=== PATIENT | female | born 2000 ===

== ENCOUNTER 2025-02-02 13:35 | Emergency (ER) | payer OTHER, SELFPAY ==
--- OUTSIDE RECORDS SUMMARY | 2024-06-30 05:30 | XMS_ITS ---
Author Organization [facility] Address [address] [place] [address] Care Team Providers Care Cash Management Coordinator Name Role Phone Franko Tom Primary Care Provider [phone] Janeen Garcia Unavailable Unavailable Kari Vizcaino Unavailable [phone] Encounters Encounter Location Date Provider Diagnosis [facility] [address] [place] [id number] Kari Vizcaino Plan Of Treatment No Information Progress Notes * José Miguel APPIAHOB: 000 (25 yo F)Acc No.[id number]:06/30/2024 Progress Notes Patient: Edna SWEET Provider: ELKE Hays, CHAN, YAZAN-C :2000 A ge:24 Y S ex:Female Date:06/30/2024 Address:[address] [place] [address], [address], [id number] Pcp:Franko Tom Subjective: * Chief Complaints: * * Medical History: Objective: * Vitals: Assessment: Plan: * Treatment: * Billing Information: * Visit Code: * Procedure Codes: * Electronic signature of Kari Vizcaino APRN on 2025 at 06:24 PM EST Sign off status: Pending * Provider: ELKE Hays, CHAN, AGNP-C Date: 0 06/30/2024 Generated for Printi ng/Faxing/eTransmitting on: 1 04/04/2024 06:24 PM EST
--- OUTSIDE RECORDS SUMMARY | 2024-07-22 04:00 | XMS_ITS ---
Author Organization [facility] Address [address] [place] [address] Care Team Providers Care Carbon Paper Coating Supervisor Name Role Phone Franko Tom Primary Care Provider Janeen Garcia Unavailable Unavailable Encounters Encounter Location Date Provider Diagnosis [facility] [address] [place] [address] 07/22/2024 Franko Tom Plan Of Treatment No Information Progress Notes * José Miguel APPIAHOB: 000 (25 yo F)Acc No.[id number]:07/22/2024 Progress Notes Patient: Edna SWEET Provider: Frank Tom MD :2000 A ge:24 Y S ex:Female Date:07/22/2024 Address:[facility], [address], [id number] Subjective: * Chief Complaints: * * Medical History: Objective: * Vitals: Assessment: Plan: * Treatment: * Billing Information: * Visit Code: * Procedure Codes: * [place], [id number] on 2025 at 06:24 PM EST Sign off status: Pending * Provider: Frank Tom MD Date: 07/22/2024 Generated for Navai ng/Fajoelg/eTransmitting on: 04/04/2024 06:24 PM EST
--- OUTSIDE RECORDS SUMMARY | 2024-08-24 04:00 | XMS_ITS ---
Author Organization [facility] Address [address] [place] [address] Care Team Providers Care Metal Window Frame Maker Name Role Phone Franko Tom Primary Care Provider JoseJaneen Unavailable Unavailable Medications Medication SIG (Take, Route, Frequency, Duration) Notes Start Date End Date Status XULANE PATCH 150-35 MCG/24 HR 0; Duration: 30 *please review for potential update for e-prescription and drug interaction check* 03/12/2017 Active NORTRIPTYLINE HCL 10 MG CAP 60 1 qhs x 1 week, then 2 qhs after that.; Duration: 30 *please review for potential update for e-prescription and drug interaction check* 05/07/2016 Active AMITRIPTYLINE HCL 25 MG TAB 0 1 qhs; Duration: 30 *please review for potential update for e-prescription and drug interaction check* ae: helps sleep, groggy in a.m.. 02/14/2016 Active Vitamin B-2 100 mg 120 Oral Take 2 tabs bid with meals (4 tabs qd).; Duration: 30 03/05/2016 Active Acetaminophen Extra Strength 500 MG 0 Oral 2 tabs prn; Duration: 30 12/30/2016 Active Ibuprofen 200 mg 0 Oral 2 tabs prn, uses 8/week.; Duration: 30 relief 0%-60%. 12/30/2016 Active Fludrocortisone Acetate 0.1 MG 0 Oral 1 tab bid; Duration: 30 02/19/2016 Active Encounters Encounter [facility] Date [facility] [address] [place] [address] 08/24/2024 Franko Tom Plan Of Treatment No Information Progress Notes * Phil APPIAH: 000 (25 yo F)Acc No.[id number]:08/24/2024 Progress Notes Patient: Edna SWEET Provider: Frank Tom MD :2000 A ge:24 Y S ex:Female Date:08/24/2024 Address:[address] [place] [address] Subjective: * Chief Complaints: * * Medical History: * Medications: T aking Acetaminophen Extra Strength 500 MG Tablet 0 Oral 2 tabs prn , Taking Fludrocortisone Acetate 0.1 MG Tablet 0 Oral 1 tab bid , Taking Ibuprofen 200 mg Tablet 0 Oral 2 tabs prn, uses 8/week. , Notes to Pharmacist: relief 0%-60%., Taking Vitamin B-2 100 mg Tablet 120 Oral Take 2 tabs bid with meals (4 tabs qd). , Taking AMITRIPTYLINE HCL 25 MG TAB 0 1 qhs , Notes to Pharmacist: *please review for potential update for e-prescription and drug interaction check* ae: helps sleep, groggy in a.m.., Taking NORTRIPTYLINE HCL 10 MG CAP 60 1 qhs x 1 week, then 2 qhs after that. , Notes to Pharmacist: *please review for potential update for e-prescription and drug interaction check*, Taking XULANE PATCH 150-35 MCG/24 HR 0 , Notes to Pharmacist: *please review for potential update for e-prescription and drug interaction check* Objective: * Vitals: Assessment: Plan: * Treatment: * Billing Information: * Visit Code: * Procedure Codes: * [place], [id number] on 2025 at 06:25 PM EST Sign off status: Pending * Provider: Frank Tom MD Date: 0 08/24/2024 Generated for Jana thomason/Hans/Polly on: 04/04/2024 06:25 PM EST
--- OUTSIDE RECORDS SUMMARY | 2025-01-26 14:00 | XMS_ITS | Encounter Summary ---
Author Organization [facility] Address [address] [place] [address] Care Team Providers Care Lamp Shades Supervisor Name Role Phone Lissy Reece MD Primary Care P rovider Reason for Referral * Physical Therapy (Routine) - Pending Review Specialty Diagnoses / Procedures Referred By Deniz erazo Referred To Contact Physical Therapy Diagnoses Chronic midline back pain, unspecified back location Gayathri Medellin MD [address] [place] [address] Phone: tel: fax: Barrera Brower, PT [address] [facility] ([place] ) [place] [address] Referral ID Status Reason Start Date Expiration Date Visits Requested Visits Authorized [id number] Pending Review Specialty Services Required 01/26/2025 02/25/2026 6 6 * Consultation (Routine) - Pending Review Specialty Diagnoses / Procedures Referred By Deniz erazo Referred To Contact Orthopaedic Surgery Diagnoses Chronic midline back pain, unspecified back location Gayathri Medellin MD [address] [place] [address] Phone: tel: fax: [facility] [address] [place] [address] Phone: tel: fax: Referral ID Status Reason Start Date Expiration Date V isits Requested Visits Authorized [id number] Pending Review 01/26/2025 02/25/2026 6 6 * Consultation (Routine) - Pending Review Specialty Diagnoses / Procedures Referred By Deniz erazo Referred To Contact Dermatology Diagnoses Acne, unspecified acne type Gayathri Medellin MD [address] [place] [address] Phone: tel: fax: [facility] 4th Floor [address] [facility], [place] [address] Phone: tel: fax: Referral ID Status Reason Start Date Expiration Date Visits Requested Visits Authorized [id number] Pending Review Specialty Services Required 01/26/2025 02/25/2026 6 6 * Consultation (Routine) - Pending Review Specialty Diagnoses / Procedures Referred By Deniz erazo Referred To Contact Family Medicine Diagnoses Anxiety Gayathri Medellin MD [address] [place] [address] Phone: tel: fax: [facility] [address] [place] [address] Phone: tel: fax: Referral ID Status Reason Start Date Expiration Date Visits Requested Visits Authorized [id number] Pending Review Specialty Services Required 01/26/2025 02/25/2026 6 6 Reason for Visit * Reason Comments New Patient Encounter Details Date Type Department Care Team (Late st Contact Info) Description 01/26/2025 2:00 PM EST Office Visit [facility] [address] [place] [address] Lissy Reece MD [address] [place] [address] Encounter to establish care (Primary Dx); Healthcare maintenance; Anxiety; Chronic midline back pain, unspecified back location; Acne, unspecified acne type; Globus sensation Social History Tobacco Use Types Packs/Day Years Used Date Smoking Tobacco: Never Smokeless Tobacco: Never Comments:: Alcohol Use Standard Drinks/Week Comments Never 0 (1 standard drink = 0.6 oz pur e alcohol) Hunger Vital Sign Answer Date Recorded Within the past 12 months, y ou worried that your food would run out before you got the money to buy more. Sometimes true Within the past 12 months, t he food you bought just didn't last and you didn't have money to get more. Often true 09/2024 [facility] Utilities Answer Date Recorded In the past 12 months has th e electric, gas, oil, or water company threatened to shut off services in your home? No 01/28/2025 Transportation Answer Date Recorded In the past 12 months, has l ack of reliable transportation kept you from medical appointments, meetings, work or from getting things needed for daily living? Yes 01/28/2025 Housing Answer Date Recorded Housing Risk Low 2 01/28/2025 Housing Risk Medium Not on file 01/28/2025 Housing Risk High Not on file 01/28/2025 What is your living situation today? 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 Case discussed with the resident/fellow and I agree with the findings and plan as documented in the resident's/fellow's note. * Gayathri Medellin MD - 01/26/2025 3:20 PM EST Seen with resident * Lissy Lacy MD - 01/26/2025 1:50 PM EST [facility] Patient: Edna Galan : 2000 Clinic H&P Note Subjective PATIENT ID: Edna Galan is a pleasant 24 y.o. female with a PMH of anxiety, depression, PTSD, dysmenorrhea here for new patient establishment with primary care provider. HPI: Edna Galan is a pleasant 24 y.o. female with a PMH of anxiety, depression, PTSD, dysmenorrhea here for new patient establishment with primary care provider. Patient would also like to discuss ongoing anxiety and depression. She had seen a psychiatrist in the past but is currently not in follow up. She was on lexapro for a short period a few months ago. She reports feeling better on it but discontinued as she did not want to be dependent on the medications. She reports being on amytriptilline as a teenager. She reports experiencing emotional lability, nightmares, anxiety, hearing and seeing things that are not present but being aware that they are not real. She reports being diagnosed with bipolar disorder in the past but that she does agree with the diagnosis. For patients not previously with complete/up-to-date information in the [facility] EMR, the above additional history was elicited today, with prior documentation in the intra-system record populated as below: PAST MEDICAL HISTORY History reviewed. No pertinent past medical history. Problem List Diagnosis Date Noted Breast lump 01/28/2025 H/O food anaphylaxis 07/01/2024 Polyuria 07/01/2024 Nonintractable headache 07/01/2024 Mild intermittent asthma, unspecified whether complicated (HCC) 01/07/2024 Pelvic pain 11/27/2023 Need for bigdevyvof-yxjrjut-izziqtvhn (Tdap) vaccine 11/20/2023 Depression 10/17/2023 Unprotected sex 12/27/2022 Vegan diet 12/27/2022 Palpitations 05/15/2022 PTSD (post-traumatic stress disorder) 05/15/2022 Orthostatic hypotension 05/15/2022 Dysmenorrhea 08/03/2021 Asthma (HCC) 08/19/2020 Adolescent idiopathic scoliosis of thoracolumbar region 05/20/2017 Syncope 02/12/2016 Disorder of sebaceous glands 01/16/2011 Eczema 04/28/2008 Contact dermatitis 12/21/2007 Allergies Allergen Reactions Amitriptyline Abdominal Pain Benadryl [Diphenhydramine Hcl] Slow Heart Rate Patient reports heart rate of 20s with benadryl in 2022 in ED, per notes patient reported vagal symptoms, no note made by MD of bradycardia at the time. Latex Rash Contact dermatitis like rash Soy Other (see comments) Throat itching and tightness Current Outpatient Medications: EPINEPHrine (EPIPEN) 0.3 mg/0.3 mL injection syringe, Inject 1 Syringe (0.3 mg total) into the outer thigh muscle as directed as needed for anaphylaxis., Disp: 1 each, Rfl: 2 erythromycin (ILOTYCIN) 0.5% ophthalmic ointment, Apply to both eyes nightly. Place a 1/2 inch ribbon of ointment into the lower eyelid., Disp: 3.5 g, Rfl: 0 inhalational spacing device, Use as directed, Disp: 1 each, Rfl: 2 tretinoin (RETIN-A) 0.025 % cream, Apply topically to the affected area nightly., Disp: 20 g, Rfl: 1 Ventolin HFA 90 mcg/actuation inhaler, INHALE 1-2 PUFFS BY MOUTH EVERY 6 HOURS NEEDED FOR WHEEZING/SHORTNESS OF BREATH.USE WITH SPACER, Disp: 18 g, Rfl: 1 Vitamin D3 25 mcg (1,000 unit) capsule, Take 1 capsule (1,000 Units total) by mouth once a day., Disp: 30 capsule, Rfl: 11 SOCIAL HISTORY Social History Tobacco Use Smoking status: Never Smokeless tobacco: Never Tobacco comments: : Substance Use Topics Alcohol use: Never reports that she has never smoked. She has never used smokeless tobacco. She reports that she does not drink alcohol and does not use drugs. FAMILY HISTORY Family History Problem Relation Age of Onset Other Mother No pertinent family history Chelo-Danlos syndrome Mother Cervical cancer Mother ADD / ADHD Mother Depression Mother Anxiety disorder Mother Hypertension Father Hypothyroidism Father Coronary artery disease Father Anxiety disorder Father Seizures Father Depression Sister Anxiety disorder Sister Bipolar disorder Sister Polycystic ovary syndrome Sister ADD / ADHD Brother REVIEW OF SYSTEMS Pertinent positive and negative ROS as in HPI. Objective Vitals: 01/26/25 1346 BP: 103/71 BP Location: Right arm Patient Position: Sitting Pulse: 64 Weight: 68 kg (150 lb) Height: 1.651 m (5' 5 ) Physical Exam Constitutional: General: She is not in acute distress. Cardiovascular: Heart sounds: Normal heart sounds. No murmur heard. Pulmonary: Effort: No respiratory distress. Breath sounds: Normal breath sounds. Neurological: Mental Status: She is alert. ASSESSMENT AND PLAN In Summary, Edna Galan was seen today for new patient establishment. Assessment & Plan Encounter to establish care Healthcare maintenance Edna Galan is a pleasant 24 y.o. female with a PMH of anxiety, depression, PTSD, dysmenorrhea here for new patient establishment with primary care provider. She also requested testing for sexually transmitted infections. Orders: CBC Vitamin D 25 hydroxy Basic metabolic panel HIV 1/2 antibodies, rapid Hepatitis C Antibody w/Reflex to HCV RNA, Quantitative PCR Chlamydia/Neisseria gonorrhoeae RNA; Future Anxiety Patient would also like to discuss ongoing anxiety and depression. She had seen a psychiatrist in the past but is currently not in follow up. She was on lexapro for a short period a few months ago. She reports feeling better on it but discontinued as she did not want to be dependent on the medications. She reports being on amytriptilline as a teenager. She reports experiencing emotional lability, nightmares, anxiety, hearing and seeing things that are not present but being aware that they are not real. She reports being diagnosed with bipolar disorder in the past but that she does agree with the diagnosis. Patient sent MDQ questionnaire and ASRS questionnaire to fill in before next visit. Plan to start medications after further evaluation and discussion with patient next visit. Orders: Ambulatory referral to Behavioral Health; Future Chronic midline back pain, unspecified back location Patient reports experiencing chronic back pain and being diagnosed with scoliosis in the past. She was following with physical therapy in the past and reported improvement in symptoms. Orders: Ambulatory referral to Ortho - All; Future Ambulatory referral to Physical Therapy; Future Acne, unspecified acne type Patient reports experiencing acne since the past few years that have caused scarring in the area ofher lower face. Orders: Ambulatory referral to Dermatology; Future - Tretinoin topical cream 0.025%, application with moisturizer in the night. Apply sunscreen in theAM. Globus sensation Orders: Allergen Respiratory Profile Region I w/ Reflexes, IgE Allergen Soybean, IgE Chlamydia/Neisseria gonorrhoeae RNA; Future Return in about 2 weeks (around 02/09/2025) for Recheck, Annual physical. The patient's case was discussed with Dr. Medellin attending physician, who saw and evaluated patient in the exam room. Edna Herminio Angelia : 2000 CSN: [id number] Lissy Lacy MD, PGY-1 Department of Family Medicine [facility] documented in this encounter Plan of Treatment Upcoming Encounters Date Type Department Care Team (Late st Contact Info) Description 02/07/2025 2:30 PM EST Telehealth [facility] [address] [place] [phone] Krystle Escalante, LUZMARIA [address] [place] [address] 03/07/2025 2:00 PM EST Office Visit [facility] [address] [place] [address] Lissy Reece MD [address] [place] [address] 07/14/2025 3:30 PM EDT Office Visit [facility] Dermatology [address] [place] [address] Eduar Alvarez MD [address] [place] [address] Scheduled Referrals Name Type Priority Associated Diagnoses Orde r Schedule Ambulatory referral to Behavioral Health Outpatient Referral Routine Anxiety Expected: 01/26/2025, Expires: 07/26/2026 Ambulatory referral to Dermatology Outpatient Referral Routine Acne, unspecified acne type Expected: 01/26/2025, Expires: 02/25/2026 Ambulatory referral to Ortho - All Outpatient Referral Routine Chronic midline back pain, unspecified back location Expected: 01/26/2025, Expires: 02/25/2026 Ambulatory referral to Physical Therapy Outpatient Referral Routine Chronic midline back pain, unspecified back location Expected: 01/26/2025, Expires: 02/25/2026 documented as of this encounter Procedures * Due to [place] state law, this organization might not be sharing negative HIV tests. Procedure Name Priority Date/Time Associated Diagnosis Comments CHLAMYDIA/NEISSERIA GONORRHEA RNA Routine 01/26/2025 4:30 PM EST Chronic midline back pain, unspecified back location Acne, unspecified acne type Healthcare maintenance Anxiety Globus sensation DOG DANDER COMPONENT -[id number] Routine 01/26/2025 3:40 PM EST Globus sensation CAT DANDER COMPONENT [id number] Routine 01/26/2025 3:40 PM EST Globus sensation ALLERGEN RESPIRATORY PROFILE REGION I W/REFLEXES, IGE Routine 01/26/2025 3:40 PM EST Globus sensation HEPATITIS C ANTIBODY W/REFLEX TO HCV RNA, QUANTITATIVE PCR Routine 01/26/2025 3:40 PM EST Healthcare maintenance ALLERGEN SOYBEAN, IGE Routine 01/26/2025 3:40 PM EST Globus sensation VITAMIN D, 25-HYDROXY, TOTAL, IMMUNOASSAY Routine 01/26/2025 3:40 PM EST Healthcare maintenance HIV-1/2 ANTIGEN/ANTIBODIES 4TH GENERATION W/REFLEX Routine 01/26/2025 3:40 PM EST Healthcare maintenance CBC Routine 01/26/2025 3:40 PM EST Healthcare maintenance BASIC METABOLIC PANEL Routine 01/26/2025 3:40 PM EST Healthcare maintenance documented in this encounter Results * Due to [place] state law, this organization might not be sharing negative HIV tests. * Chlamydia/Neisseria gonorrhoeae RNA (01/26/2025 4:30 PM EST) Chlamydia trachomatis RNA, T[facility] NOT DETECTED NOT DETECTED 01/27/2025 2:16 PM EST [facility] Neisseria Gonorrhoeae RNA, TMA NOT DETECTED NOT DETECTED 01/27/2025 2:16 PM EST [facility] Comment: The analytical performance characteristics of this assay, when used to test SurePath(TM) specimens have been determined by [facility]. The modifications have not been cleared or approved by the FDA. This assay has been validated pursuant to the CLIA regulations and is used for clinical purposes. For additional information, please refer to https://education.Siftit.Redapt/faq/SEJ280 (This link is being provided for information/ educational purposes only.) Urine Voided urine specimen / Unknown Non-Blood Collection / Unknown 01/26/2025 4:30 PM EST 01/26/2025 4:30 PM EST Narrative [facility] - 01/27/2025 2:16 PM EST [facility] Received Date: Gayathri Medellin MD LAB URINE ORDERABLES Fi nal Result [facility] [address] [facility] 3rd Floor, [place] [address], [facility] [address] [facility] 3rd Floor, [place] [address], * Dog Dander Component (01/26/2025 3:40 PM EST) Can f 1 (e101) IgE <0.10 <0.10 kU/L 01/31/2025 10:02 PM EST [facility] Can f 2 (e102) IgE <0.10 <0.10 kU/L 01/31/2025 10:02 PM EST [facility] Can f 3 (e221) IgE <0.10 <0.10 kU/L 01/31/2025 10:02 PM EST [facility] Can f 4 (e229) IgE <0.10 <0.10 kU/L 01/31/2025 10:02 PM EST [facility] Can f 5 (e226) IgE <0.10 <0.10 kU/L 01/31/2025 10:02 PM EST [facility] Can f 6 (e230) IgE <0.10 <0.10 kU/L 01/31/2025 10:02 PM EST [facility] Comment: Component testing for samples with positive extract results may help to rule out cross-reactivity and confirm that allergy is present. The more components a patient is sensitized to, the higher the likelihood of a reaction when exposed to dogs. Sensitization to Can f 5 only may indicate that the patient can tolerate female dogs. Blood Structure of peripheral vein / Unknown Venipuncture / Unknown 01/26/2025 3:40 PM EST 01/26/2025 3:40 PM EST Narrative [facility] - 01/31/2025 10:02 PM EST [facility] Received Date: us Jessica Treviño MD LAB BLOOD ORDERABLES Final Res ult [facility] [address] [facility] 3rd Floor, [place] [address], [place] [phone] [facility] [address], [place] [address], [place] [phone] * (ABNORMAL) Cat Dander Component Panel (01/26/2025 3:40 PM EST) [facility] Fel d 1 (e94) IgE 1.49(H) <0.10 kU/L 01/31/2025 10:02 PM EST [facility] Fel d 2 (e220) IgE <0.10 <0.10 kU/L 01/31/2025 10:02 PM EST [facility] Fel d 4 (e228) IgE <0.10 <0.10 kU/L 01/31/2025 10:02 PM EST [facility] Fel d 7 (e231) IgE <0.10 <0.10 kU/L 01/31/2025 10:02 PM EST [facility] Comment: Component testing for samples with positive extract results may help to rule out cross-reactivity and confirm that allergy is present. The more components a patient is sensitized to, the higher the likelihood of a reaction when exposed to cats. Blood Structure of peripheral vein / Unknown Venipuncture / Unknown 01/26/2025 3:40 PM EST 01/26/2025 3:40 PM EST Narrative [facility] - 01/31/2025 10:02 PM EST [facility] Received Date: us Jessica Treviño MD LAB BLOOD ORDERABLES Final Res ult Performing Organization Address City/[facility]/ZIP Co de Phone Number [facility] [address] [facility] 3rd Floor, [place] [address], [place] [phone] [facility] [address] [facility] 3rd Floor, [place] [address], * Allergen Soybean, IgE (01/26/2025 3:40 PM EST) [facility] Allergen Soybean (F14) IgE <0.10 kU/L 01/31/2025 5:19 PM EST [facility] Allergen Soybean (F14) IgE Class 0 01/31/2025 5:19 PM EST [facility] RAST Interpretation See Comments 01/31/2025 5:19 PM EST [facility] Comment: Specific Level of Allergen IGE Class kU/L Specific IGE Antibody ----- --------- 0 <0.10 Absent/Undetectable 0/1 0.10-0.34 Very Low Level 1 0.35-0.69 Low Level 2 0.70-3.49 Moderate Level 3 3.50-17.4 High Level 4 17.5-49.9 Very High Level 5 50-100 Very High Level 6 >100 Very High Level The clinical relevance of allergen results of 0.10-0.34 kU/L are undetermined and intended for specialist use. Allergens denoted with a include results using one or more analyte specific reagents. In those cases, the test was developed and its analytical performance characteristics have been determined by [facility]. It has not been cleared or approved by the U.S. Food and Drug Administration. This assay has been validated pursuant to the CLIA regulations and is used for clinical purposes. Blood Structure of peripheral vein / Unknown Venipuncture / Unknown 01/26/2025 3:40 PM EST 01/26/2025 3:40 PM EST Narrative [facility] - 01/31/2025 5:19 PM EST [facility] Received Date: us Jessica Treviño MD LAB BLOOD ORDERABLES Final Res ult [facility] [address] [facility] 3rd Floor, [place] [address], [facility] [address], [place] [address], * (ABNORMAL) Allergen Respiratory Profile Region I w/ Reflexes, IgE (01/26/2025 3:40 PM EST) Allergen Dermatophagoides pteronyssinus (D1) IgE 4.49(H) kU/L 01/31/2025 5:25 PM EST [facility] Allergen Dermatophagoides pteronyssinus Class 3 01/31/2025 5:25 PM EST [facility] Allergen Dermatophagoides farinae (D2) IgE 3.72(H) kU/L 01/31/2025 5:25 PM EST [facility] Allergen Dermatophagoides farniae Class 3 01/31/2025 5:25 PM EST [facility] Allergen Penicillium notatum (M1) IgE <0.10 kU/L 01/31/2025 5:25 PM EST [facility] Allergen Penicillium notatum Class 0 01/31/2025 5:25 PM EST [facility] Allergen Cladosporium herbarum (M2) IgE <0.10 kU/L 01/31/2025 5:25 PM EST [facility] Allergen Cladosporium herbarum Class 0 01/31/2025 5:25 PM EST [facility] Allergen Aspergillus fumigatus (M3) IgE <0.10 kU/L 01/31/2025 5:25 PM EST [facility] Allergen Aspergillus fumigatus Class 0 01/31/2025 5:25 PM EST [facility] Allergen Alternaria alternata (M6) IgE <0.10 kU/L 01/31/2025 5:25 PM EST [facility] Allergen Alternaria alternata Class 0 01/31/2025 5:25 PM EST [facility] Allergen Cat Dander (E1) IgE 5.96(H) kU/L 01/31/2025 5:25 PM EST [facility] Allergen Cat Dander Class 3 01/31/2025 5:25 PM EST [facility] Allergen Dog Dander (E5) IgE 0.30(H) kU/L 01/31/2025 5:25 PM EST [facility] Allergen Dog Dander Class 0/1 01/31/2025 5:25 PM EST [facility] Allergen Cockroach (I6) IgE <0.10 kU/L 01/31/2025 5:25 PM EST [facility] Allergen Cockroach Class 0 01/31/2025 5:25 PM EST [facility] Allergen Maple ([place]) (T1) IgE <0.10 kU/L 01/31/2025 5:25 PM EST [facility] Allergen Maple ([place]) (T1) IgE Class 0 01/31/2025 5:25 PM EST [facility] Allergen Birch (T3) IgE 6.18(H) kU/L 01/31/2025 5:25 PM EST [facility] Allergen Birch Class 3 01/31/2025 5:25 PM EST [facility] Allergen Mountain Weld (T6) IgE <0.10 kU/L 01/31/2025 5:25 PM EST [facility] Allergen [place] (T6) IgE Class 0 01/31/2025 5:25 PM EST [facility] Allergen Essie Tree (T10) IgE <0.10 kU/L 01/31/2025 5:25 PM EST [facility] Allergen Essie Tree Class 0 01/31/2025 5:25 PM EST [facility] Allergen Lincoln (T11) IgE <0.10 kU/L 01/31/2025 5:25 PM EST [facility] Allergen [place] (T11) IgE Class 0 01/31/2025 5:25 PM EST [facility] Allergen [place] (T14) IgE <0.10 kU/L 01/31/2025 5:25 PM EST [facility] Allergen [place] (T14) IgE Class 0 01/31/2025 5:25 PM EST [facility] Allergen White Alfred (T15) IgE <0.10 kU/L 01/31/2025 5:25 PM EST [facility] Allergen White Alfred Class 0 01/31/2025 5:25 PM EST [facility] Allergen I[place] (T7) IgE 3.01(H) kU/L 01/31/2025 5:25 PM EST [facility] Allergen Iota (T7) IgE Class 2 01/31/2025 5:25 PM EST [facility] Allergen Elm (T8) IgE <0.10 kU/L 01/31/2025 5:25 PM EST [facility] Allergen Elm Class 0 2024 5:25 PM EST [facility] Allergen White [place] IgE <0.10 kU/L 01/31/2025 5:25 PM EST [facility] Allergen White [place] Class 0 01/31/2025 5:25 PM EST [facility] Allergen Bermuda Grass (G2) IgE <0.10 kU/L 01/31/2025 5:25 PM EST [facility] Allergen Bernuda Grass Class 0 01/31/2025 5:25 PM EST [facility] Allergen Jas Grass (G6) IgE <0.10 kU/L 01/31/2025 5:25 PM EST [facility] Allergen Jas Grass (G6) IgE Class 0 01/31/2025 5:25 PM EST [facility] Allergen Common Ragweed (Short) (W1) IgE <0.10 kU/L 01/31/2025 5:25 PM EST [facility] Allergen Common Ragweed (Short) (W1) IgE Class 0 01/31/2025 5:25 PM EST [facility] Allergen Rough Pigweed (W14) IgE <0.10 kU/L 01/31/2025 5:25 PM EST [facility] Allergen Rough Class 0 01/31/2025 5:25 PM EST [facility] Allergen Mugwort (W6) IgE <0.10 kU/L 01/31/2025 5:25 PM EST [facility] Allergen Mugwort Class 0 01/31/2025 5:25 PM EST [facility] Allergen Sheep [place] (W18) IgE <0.10 kU/L 01/31/2025 5:25 PM EST [facility] Allergen Sheep [place] (W18) IgE Class 0 01/31/2025 5:25 PM EST [facility] Allergen Mouse Urine Proteins (E72) IgE <0.10 kU/L 01/31/2025 5:25 PM EST [facility] Allergen Mouse Urine Proteins Class 0 01/31/2025 5:25 PM EST [facility] Immunoglobulin E 59 <WE=873 kU/L 01/31/2025 5:25 PM EST [facility] Blood Structure of peripheral vein / Unknown Venipuncture / Unknown 01/26/2025 3:40 PM EST 01/26/2025 3:40 PM EST Viviane GONZALES - 01/31/2025 5:25 PM EST Specific Level of Allergen IGE Class kU/L Specific IGE Antibody ----- --------- 0 <0.10 Absent/Undetectable 0/1 0.10-0.34 Very Low Level 1 0.35-0.69 Low Level 2 0.70-3.49 Moderate Level 3 3.50-17.4 High Level 4 17.5-49.9 Very High Level 5 50-100 Very High Level 6 >100 Very High Level The clinical relevance of allergen results of 0.10-0.34 kU/L are undetermined and intended for specialist use. Allergens denoted with a include results using one or more analyte specific reagents. In those cases, the test was developed and its analytical performance characteristics have been determined by [facility]. It has not been cleared or approved by the U.S. Food and Drug Administration. This assay has been validated pursuant to the CLIA regulations and is used for clinical purposes. us Jessica Treviño MD LAB BLOOD ORDERABLES Final Res ult [facility] [address] [facility] [address]rd [facility], [place] [address], [facility] [address], [place] [address], * Hepatitis C Antibody w/Reflex to HCV RNA, Quantitative PCR (01/26/2025 3:40 PM EST) Pathologist [facility] Hepatitis C Antibody NON-REACT DAVE NON-REACT DAVE 01/27/2025 5:16 AM EST [facility] Comment: HCV antibody was non-reactive. There is no laboratory evidence of HCV infection. In most cases, no further action is required. However, if recent HCV exposure is suspected, a test for HCV RNA (test code 68865) is suggested. For additional information please refer to http://education.Siftit.Redapt/faq/PRQ97j9 (This link is being provided for informational/ educational purposes only.) Blood Structure of peripheral vein / Unknown Venipuncture / Unknown 01/26/2025 3:40 PM EST 01/26/2025 3:40 PM EST Narrative [facility] - 01/27/2025 5:16 AM EST [facility] Received Date:[id number] us Gayathri Medellin MD LAB BLOOD ORDERABLES Fi nal Result Performing Organization Address City/[facility]/ZIP Co de Phone Number [facility] [address], [place] [address], [place] [phone] [facility] [address], [place] [address], [place] [phone] * HIV 1/2 antibodies, rapid (01/26/2025 3:40 PM EST) [facility] HIV [facility] HIV NEGATIVE 01/27/2025 7:02 AM EST [facility] Comment: HIV-1 antigen and HIV-1/HIV-2 antibodies were not detected. There is no laboratory evidence of HIV infection. Blood Structure of peripheral vein / Unknown Venipuncture / Unknown 01/26/2025 3:40 PM EST 01/26/2025 3:40 PM EST Narrative [facility] - 01/27/2025 7:02 AM EST [facility] Received Date:[id number] us Gayathri Medellin MD LAB BLOOD ORDERABLES Fi nal Result [facility] [address] [facility] 3rd Floor, [place] [address], [place] [phone] [facility] [address], [place] [address], [place] [phone] * Basic metabolic panel (01/26/2025 3:40 PM EST) NA 139 135 - 145 mmol/L 01/26/2025 9:50 PM EST [facility] K 4.4 3.5 - 5.3 mmol/L 01/26/2025 9:50 PM EST [facility] Cl 106 97 - 110 mmol/L 01/26/2025 9:50 PM EST [facility] CO2 23 22 - 32 mmol/L 01/26/2025 9:50 PM EST [facility] BUN 12 7 - 23 mg/dL 01/26/2025 9:50 PM EST [facility] Creatinine 0.81 0.50 - 1.20 mg/dL 01/26/2025 9:50 PM EST [facility] Glucose 85 65 - 99 mg/dL 01/26/2025 9:50 PM EST [facility] Calcium 9.6 8.6 - 10.5 mg/dL 01/26/2025 9:50 PM EST [facility] Anion Gap 10 5 - 15 [facility] 01/26/2025 9:50 PM EST [facility] eGFR >90 >=60 mL/min/1. 73m2 [facility] 01/26/2025 9:50 PM EST [facility] Comment:The estimated glomer ular filtration rate (eGFR) is calculated using a new formula developed by the NKF-ASN task force to eliminate race-based correction factors. The new formula uses serum/plasma creatinine, age, and gender to determine eGFR. A value below 60mls/min might indicate kidney disease and will be flagged. For additional information, see Yuli et al, Am J Kidney Dis. 2021;79(2):268- 288, A Unifying Approach for GFR estimation: Recommendations of the NKF-ASN Task Force on Reassessing the Inclusion of Race in Diagnosing Kidney Disease . Blood Structure of peripheral vein / Unknown Venipuncture / Unknown 01/26/2025 3:40 PM EST 01/26/2025 3:40 PM EST Gayathri Medellin MD LAB BLOOD ORDERABLES Fi nal Result [facility] [address] [place] [address], [place] * Vitamin D 25 hydroxy (01/26/2025 3:40 PM EST) Calcidiol+ercalc idiol 55 30 - 100 ng/mL 01/27/2025 12:59 PM EST [facility] Comment: Vitamin D Status 25-OH Vitamin D: Deficiency: <20 ng/mL Insufficiency: 20 - 29 ng/mL Optimal: > or = 30 ng/mL For 25-OH Vitamin D testing on patients on D2-supplementation and patients for whom quantitation of D2 and D3 fractions is required, the Quest[facility]ure[facility](TM) 25-OH VIT D, (D2,D3), LC/MS/MS is recommended: order code 30814 (patients >2yrs). See Note 1 Note 1 For additional information, please refer to http://education.Aristotle Circle/faq/EQA137 (This link is being provided for informational/ educational purposes only.) Blood Structure of peripheral vein / Unknown Venipuncture / Unknown 01/26/2025 3:40 PM EST 01/26/2025 3:40 PM EST Narrative [facility] - 01/27/2025 12:59 PM EST [facility] Received Date: Gayathri Medellin MD LAB BLOOD ORDERABLES Fi nal Result [facility] [address] [facility] 3rd Floor, [place] [address], [place] [phone] [facility] 200 [facility] 3rd Floor, [place] [address], [place] [phone] * CBC (01/26/2025 3:40 PM EST) Pathologist [facility] WBC 7.9 3.8 - 10.8 10*3/uL 01/26/2025 4:41 PM EST [facility] RBC 4.65 3.80 - 5.10 10*6/uL 01/26/2025 4:41 PM EST [facility] Hemoglobin 13.3 11.7 - 15.5 g/dL 01/26/2025 4:41 PM EST [facility] Hematocrit 40.8 35.0 - 45.0 % 01/26/2025 4:41 PM EST [facility] MCV 87.7 80.0 - 100.0 fL 01/26/2025 4:41 PM EST [facility] MCH 28.6 27.0 - 33.0 pg 01/26/2025 4:41 PM EST [facility] MCHC 32.6 32.0 - 36.0 g/dL 01/26/2025 4:41 PM EST [facility] RDW 12.5 11.0 - 15.0 % 01/26/2025 4:41 PM EST [facility] Platelets 304 140 - 400 10*3/uL 01/26/2025 4:41 PM EST [facility] MPV 9.7 7.5 - 12.5 fL 01/26/2025 4:41 PM EST [facility] Smear Review? 01/26/2025 4:41 PM EST [facility] Blood Structure of peripheral vein / Unknown Venipuncture / Unknown 01/26/2025 3:40 PM EST 01/26/2025 3:40 PM EST us Gayathri Medellin MD LAB BLOOD ORDERABLES Fi nal Result [facility] [address] [place] [address], documented in this encounter Visit Diagnoses Diagnosis Encounter to establish care- Primary Healthcare maintenance Anxiety Anxiety state, unspecified Chronic midline back pain, unspecified back location Acne, unspecified acne type Globus sensation Gastrointestinal malfunction arising from mental factors documented in this encounter Care Teams Lamp Shades Supervisor Relationship Specialty Start Date End Date Lissy Reece MD [address] [facility] [place] [address] PCP - General Family Medicine 01/26/25 documented as of this encounter
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
--- OUTSIDE RECORDS SUMMARY | 2025-01-31 10:04 | XMS_ITS | Encounter Summary ---
Author Organization [facility] Address [address] [place] [address] Care Team Providers Care Cattle Tester Name Role Phone Lissy Reece MD Primary Care P rovider Encounter Details Date Type Department Care Team (Latest Contact Info) Description 01/31/2025 10:04 AM EST - 01/31/2025 11:59 PM [facility] Hospital Encounter [facility] Xray [address] [place] [address] Adolescent idiopathic scoliosis of thoracolumbar region Discharge Disposition: Home or Self Care () Social History Tobacco Use Types Packs/Day Years [...] money to get more. Often true 09/[address] 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 1 each 2 07/23/2024 erythromycin (ILOTYCIN) 0.5% ophthalmic ointment Apply to both eyes nightly. Place a 1/2 inch ribbon of ointment into the lower eyelid. 3.5 g 08/22/2024 inhalational spacing device Use as directed 1 each 2 07/23/2024 tretinoin (RETIN-A) 0.025 % cream Apply topically to the affected area nightly. 20 g 1 01/26/2025 Ventolin HFA 90 mcg/actuation inhaler INHALE 1-2 PUFFS BY MOUTH EVERY 6 HOURS NEEDED FOR WHEEZING/SHORTN ESS OF BREATH.USE WITH SPACER 18 g 1 09/07/2024 Vitamin D3 25 mcg (1,000 unit) capsule Take 1 capsule (1,000 Units total) by mouth once a day. 30 capsule 11 06/20/2024 documented as of this encounter Plan of Treatment Upcoming Encounters Date Type Department Care Team (Late st Contact Info) Description 02/07/2025 2:30 PM [facility] Telehealth [facility] [address] [place] [phone] Krystle Escalante, LUZMARIA [address] [place] [address] 03/07/2025 2:00 PM EST Office Visit [facility] [address] [place] [phone] Lissy Reece MD [address] [place] [address] 07/14/2025 3:30 PM EDT Office Visit [facility] [address] [place] [phone] Eduar Alvarez MD [address] [place] [address] Pending Results Name Type Priority Associated Diagnoses Date /Time X-Ray Scoliosis Standing AP and Lateral Imaging Routine Adolescent idiopathic scoliosis of thoracolumbar region 01/31/2025 10:16 AM EST Scheduled Orders Name Type Priority Associated Diagnoses Orde r Schedule X-Ray Scoliosis Standing AP and Lateral Imaging Routine Adolescent idiopathic scoliosis of thoracolumbar region Once for 1 Occurrences starting 01/31/2025 until 01/31/2025 documented as of this encounter Visit Diagnoses Diagnosis Adolescent idiopathic scoliosis of thoracolumbar region documented in this encounter Care Teams Cattle Tester Relationship Specialty Start Date End Date Lissy Reece MD [address] [place] [address] PCP - General Family Medicine 01/26/25 documented as of this encounter
--- OUTSIDE RECORDS SUMMARY | 2025-01-31 10:30 | XMS_ITS | Encounter Summary ---
Author Organization [facility] Address [address] [place] [address] Care Team Providers Care Billing Typist Name Role Phone Lissy Reece MD Primary Care P rovider Reason for Referral * Consultation (Routine) - Pending Review Specialty Diagnoses / Procedures Referred By Deniz erazo Referred To Contact Rheumatology Diagnoses Classical Chelo-Danlos syndrome (HCC) Rachel Durbin PA [address] [place] [address] Phone: tel: fax: Referral ID Status Reason Start Date Expiration Date Visits Requested Visits Authorized [id number] Pending Review Specialty Services Required 01/31/2026 6 6 Reason for Visit * Reason Comments New Patient Back pain/scoliosis * Consultation (Routine) - Pending Review Specialty Diagnoses / Procedures Referred By Deniz erazo Referred To Contact Orthopaedic Surgery Diagnoses Chronic midline back pain, unspecified back location Gayathri Medellin MD [address] [place] [phone] Phone: tel: fax: [facility] [address] [place] [address] Phone: tel: fax: Referral ID Status Reason Start Date Expiration Date V isits Requested Visits Authorized [id number] Pending Review 01/26/2025 02/25/2026 6 6 Encounter Details Date Type Department Care Team (Latest Contact Info) Description 01/31/2025 10:30 AM EST Office Visit [facility] A [address] [place] [phone] Rachel Durbin PA [address] [place] [address] Classical Chelo-Danlos syndrome (HCC) (Primary Dx); Adolescent idiopathic scoliosis of thoracolumbar region Social History Tobacco Use Types Packs/Day Years [...] money to get more. 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 She presents as a new patient to this practice. She has had a complicated history related to her spine. As a teenager she was diagnosed with scoliosis. This was first reported at age 15 at which time she was not indicated for any bracing and was outside the window of requiring surgical fixation. She has reported ongoing lumbar pain without significant signs or symptoms of myelopathy. She has noted episodes of sciatica bilaterally. She has also now reported an acute onset of cervical pain. She denies any recent trauma or inciting incidents. She feels the pain for her cervical spine mostly on the sides of the neck along with patches of numbness of her upper extremities. As of note her mother has a diagnosis of Chelo-Danlos syndrome and she feels that she is also experiencing ligamentous laxity. She has not been formally diagnosed. She has done multiple courses of physical therapy in her lifetime most recently approximately 1 year ago. She was progressed to a home exercise program at that time. She also reports that she has made a plan to return to physical therapy shortly. PAST MEDICAL HISTORY: No past medical history on file. PAST SURGICAL HISTORY: Past Surgical History: Procedure Laterality Date APPENDECTOMY BREAST LUMPECTOMY Right MEDICATIONS: Current Outpatient Medications Medication Sig Dispense Refill EPINEPHrine (EPIPEN) 0.3 mg/0.3 mL injection syringe Inject 1 Syringe (0.3 mg total) into the outerthigh muscle as directed as needed for anaphylaxis. 1 each 2 erythromycin (ILOTYCIN) 0.5% ophthalmic ointment Apply to both eyes nightly. Place a 1/2 inch ribbon of ointment into the lower eyelid. 3.5 g 0 inhalational spacing device Use as directed 1 each 2 tretinoin (RETIN-A) 0.025 % cream Apply topically to the affected area nightly. 20 g 1 Ventolin HFA 90 mcg/actuation inhaler INHALE 1-2 PUFFS BY MOUTH EVERY 6 HOURS NEEDED FOR WHEEZING/SHORTNESS OF BREATH.USE WITH SPACER 18 g 1 Vitamin D3 25 mcg (1,000 unit) capsule Take 1 capsule (1,000 Units total) by mouth once a day. 30 capsule 11 No current facility-administered medications for this visit. ALLERGIES: Allergies Allergen Reactions Amitriptyline Abdominal Pain Benadryl [Diphenhydramine Hcl] Slow Heart Rate Patient reports heart rate of 20s with benadryl in 2022 in ED, per notes patient reported vagal symptoms, no note made by MD of bradycardia at the time. Latex Rash Contact dermatitis like rash Soy Other (see comments) Throat itching and tightness SOCIAL HISTORY: Social History[1] FAMILY HISTORY: Family History Problem Relation Age of Onset Other Mother No pertinent family history Chelo-Danlos syndrome Mother Cervical cancer Mother ADD / ADHD Mother Depression Mother Anxiety disorder Mother Hypertension Father Hypothyroidism Father Coronary artery disease Father Anxiety disorder Father Seizures Father Depression Sister Anxiety disorder Sister Bipolar disorder Sister Polycystic ovary syndrome Sister ADD / ADHD Brother VITAL SIGNS There were no vitals taken for this visit. REVIEW OF SYSTEMS: General ROS: negative for - chills, fever, sleep disturbance or weight loss Psychological ROS: negative for - anxiety, depression or sleep disturbances Allergy and Immunology ROS: negative for - hives or seasonal allergies Respiratory ROS: no cough, shortness of breath, or wheezing Musculoskeletal ROS: negative for - joint swelling Neurological ROS: negative for - headaches. Dermatological ROS: negative for pruritus and rash PHYSICAL EXAM: Skin: Clean warm and dry. Extremities: Lower extremities without clubbing, cyanosis or edema. She does have signs of ligamentous laxity for thumb range of motion and over extension of her elbows bilaterally. She can also forward flex and place her hands flat on the floor. Neuro: Reflexes normal in the lower extremities. MSK: Moving all extremities well, no crepitation with movement. She walks with a steady gait, no acute distress. She is diffusely tender to palpation over the paraspinal muscles of the cervical and lumbar spines. MOTOR L2 L3 L4 L5 S1 R 5 5 5 5 5 L 5 5 5 5 5 SENSORY L2 L3 L4 L5 S1 R 2 2 2 2 2 L 2 2 2 2 2 IMAGING /OTHER STUDIES: X-rays are taken today of scoliosis views AP and lateral she does have a thoracolumbar curve which I am measuring approximately 20 degrees. This does appear to be slightly increased since previous images in 2018. Full radiology report is still pending at this time. ASSESSMENT: Edna is a 24-year-old female with diffuse cervical and lumbar pain in the setting of a mild to moderate scoliosis. As far as the scoliosis is concerned she is outside the window of benefiting from any bracing and she is not indicated for surgery at this time. She had previous x-rays of her cervical spine which showed good alignment and no significant degenerative changes. She is noted to haveligamentous laxity and her mother has previously been diagnosed with Chelo-Danlos. At this time I do not believe there are significant indications for surgical intervention or invasive procedures atthis time. I believe she would benefit greatly from a formal diagnosis of Chelo-Danlos and evaluation by rheumatology. PLAN: She can continue with outpatient physical therapy as previously planned. I will refer her to my colleagues in rheumatology for further assessment and for formal diagnosis of Chelo-Danlos if this is appropriate. If they feel there is an indication for specific pain management intervention she can be seen by my colleagues in pain management. 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 Primary Care [address] [place] [phone] Krystle Escalante NP [address] [place] [address] 03/07/2025 2:00 PM EST Office Visit [facility] Primary Care [address] [place] [phone] Lissy Reece MD [address] [place] [address] 07/14/2025 3:30 PM EDT Office Visit [facility] [address] [place] [phone] Eduar Alvarez MD [address] [place] [phone] Scheduled Referrals Name Type Priority Associated Diagnoses Order Schedule Ambulatory referral to Rheumatology Outpatient Referral Routine Classical Chelo-Danlos syndrome (HCC) Expected: 01/31/2025, Expires: 01/31/2026 documented as of this encounter Visit Diagnoses Diagnosis Classical Chelo-Danlos syndrome (HCC)- Primary Adolescent idiopathic scoliosis of thoracolumbar region documented in this encounter Care Teams Billing Typist Relationship Specialty Start Date End Date Lissy Reece MD [address] [place] [address] PCP - General Family Medicine 01/26/25 documented as of this encounter
[2025-02-02 13:40] VITALS: BP 95/61; PULSE 69; RESP 12; TEMP 36.2; O2SAT 100; BMI 24.8
[2025-02-02 13:58] LABS: MANUAL DIFF FLAG NO
[2025-02-02 14:00] LABS: Hematocrit 40.9 % (37.0-47.0); Hemoglobin 13.4 g/dl (12.0-16.0); Imm Gran Abs Auto 0.02 X10*3/uL (0.00-0.03); Imm Gran Pct Auto 0.3 % (0.0-0.4); Lymphocytes Absolute Auto 2.8 X10*3/uL (1.2-4.9); Mean Corpuscular HGB Conc 32.8 g/dl (31.0-35.0); Mean Corpuscular Hemoglobin 29.1 pg (27.0-33.0); Mean Corpuscular Volume 88.9 fL (80.0-98.0); NRBC Abs Auto 0.000 X10*3/uL (0.0-0.012); NRBC Pct Auto 0.0 /100WBC (0.0-0.2); Platelet Count 310 X10*3/uL (160-400); Red Blood Count 4.60 X10*6/uL (4.20-5.50); White Blood Count 7.6 X10*3/uL (4.8-10.8)
[2025-02-02 14:05] LABS: Appearance Urine Clear; Glucose Urine UA Negative (Negative); PH 8.0 (5.0-9.0); Specific Gravity - Urine 1.010 (1.005-1.025); UMIC TRIGGER UACC YES
[2025-02-02 14:11] VITALS: BP 95/61; PULSE 69; RESP 12; TEMP 36.2; O2SAT 100
[2025-02-02 14:14] LABS: Cannabinoid Screen Urine Not Detected (Not Detect)
[2025-02-02 14:20] LABS: Acetaminophen LAB < 3 mcg/mL (<30); Salicylate < 5.0 mg/dL (15-30)
[2025-02-02 14:32] LABS: Alanine Aminotransferase 19 U/L (0-31); Albumin Level 4.9 g/dL (3.5-5.0); Alkaline Phosphatase 88 U/L (39-117); Anion Gap 11 (12-20); Aspartate Amino Transferase 23 U/L (5-31); Blood Urea Nitrogen 16 mg/dL (9-16); Calcium 9.7 mg/dL (8.4-10.2); Carbon Dioxide 24 mmol/L (22-29); Chloride 108 mmol/L (96-108); Creatinine Clr Calc Pharmacy 84.1; Estimated Glomerular Filt Rate > 60; Lipase 36 U/L (8-78); Magnesium 1.9 mg/dL (1.6-2.6); Potassium 3.8 mmol/L (3.3-5.1); Sodium 139 mmol/L (135-145); Total Protein 8.2 g/dL (6.5-8.0)
--- NOTE | 2025-02-02 15:11 | ED_ITS ---
HPI - Psych General Chief Complaint: Psychiatric Symptoms Stated Complaint: crisis Time Seen by Provider: 02/02/25 14:11 Source: patient, family, RN notes reviewed and old records reviewed Mode of arrival: ambulatory Limitations: no limitations History of Present Illness ED Provider: Nohemi Barrios PA-C HPI Narrative: ? Patient reports the onset of suicidal thoughts approximately one month ago. ? States she initially tried to ?deal with it? on her own before seeking care. ? Prior history of depression with one episode of suicidal ideation/attempt last year (planned to crash her car but did not act; friend intervened). ? Currently endorses suicidal ideation but denies a specific plan or intent today. ? Denies thoughts of harming others. ? Intermittent perceptual disturbances: describes seeing ?shadows or faces? and occasionally hearing voices Thais , but denies command auditory hallucinations and denies responding to the voices. ? No concern for fever, chills, cough, or other infectious symptoms today. ? Significant psychosocial stressors: sole caregiver for fully paralyzed father with Guillain-Eugene? syndrome; awaiting WOOD TREATING INSPECTOR assistance; financial, emotional, and physical strain; moved into new home in November expecting more support but has not received any. ? Support system: partner Ellis (nurse) reported as supportive. ? Has seen PCP and psychiatrist once; next outpatient psychiatry follow-up was scheduled for upcoming Friday, but patient presented to ED voluntarily because ?things were escalating.? ? First time undergoing full ED psychiatric evaluation; no prior psychiatric admissions. MD complaint: suicidal ideation (no plan) and feels depressed Related Data Home Medications ?Medication ?Instructions ?Recorded ?Confirmed No Known Home Meds 02/02/25 02/02/25 Allergies Allergy/AdvReac Type Severity Reaction Status Date / Time amitriptyline Allergy Chest Pain Verified 02/02/25 13:46 latex Allergy Anaphylaxis Verified 02/02/25 13:46 soy Allergy Anaphylaxis Verified 02/02/25 13:46 diphenhydramine (From AdvReac Anxiety Verified 02/02/25 13:46 Benadryl) Review of Systems 2 Review of Systems: Yes all other systems are reviewed and are negative PMFSH Past Medical History Attestation statement: The following information was validated with the patient. Source: old records reviewed, obtained from family and nursing notes reviewed Social History Social History Advance Directives: No Advance Directives Information Provided: Yes Physical Exam 2 Exam: Exam: Patient Orientation: Person, Place, Time and Situation, okay hygiene and grooming.? Fair eye contact, attentive, no tics or tremors. Level of Consciousness: Awake, Appropriate and Alert Patient Behavior: Appropriate, Cooperative and Anxious Mood/Affect Description: not constricted, blunted or apprehensive Patient Cognition Impaired: No Ability to Follow Directions: Excellent Speech Pattern: Clear, Appropriate and Spontaneous Speech, nonpressured, spontaneous with regular rate and rhythm, normal volume and prosody.? No dysarthria. Memory Description: Intact, Immediate Intact and Short Term Intact Hallucinations: shadow hallucinations non descript and audio hallucinations 'hearing of calling of her name' Delusions: Not Present Thought Process: Intact Thought Content: positive for Intact, positive for Logical, Depressive Symptoms:? Not present. Judgement and Insight:? good and adequate. General: Appears in no acute distress, appears well nourished body habitus is normal, appears stated age. No septic or ill-appearing. Vitals reviewed normal, PMH/Social and Surgical hx reviewed including allergies and current medications. - reviewed for prior visits here Head: Normocephalic, no obvious trauma or skin lesions noted. Eyes: EOMI, conjunctiva and sclera clear ENMT: moist oral mucosa, uvula is midline no trismus Skin: no rashes Neck: trachea midline, no lymphadenopathy Cardiovascular: peripheral perfusion normal, Regular heart rate Respiratory: no respiratory distress, lungs clear Abdomen: nondistended Extremities: warm and moving without difficulty Psych: Cooperative see exam above Neuro: Alert and oriented. Vital Signs: Vital Signs: Last Vital Signs Temp 97.2 F 02/02/25 14:11 Pulse 69 02/02/25 14:11 Resp 12 02/02/25 14:11 BP 95/61 02/02/25 14:11 Pulse Ox 100 02/02/25 14:11 O2 Del Method Room Air 02/02/25 14:11 BMI result Body Mass Index 24.8 Medical Decision Making Medical Decision Making MDM Narrative: 25 year old female with PMH sig for depression and recurrent SI presenting to the emergency department with SI. Fam hx sig for both sides with schizophrenia and other mood disorders. Patient has no acute medical complaints. On arrival, patient is afebrile.? Vitals are stable. Physical examination is as above and essentially unremarkable. Laboratory work-up is reassuring. I find no evidence at this time of an acute medical condition requiring urgent or emergent evaluation or intervention. The patient appears to be medically clear for the purpose of psychiatric evaluation. 1635: Crisis team evaluated patient and was able to find her placement as a respit tomorrow. Safety contract in place, she felt safe to go home. She will be discharged as she has been medically cleared, ER return precautions given. She agrees with plan. Differential Diagnosis Differential Diagnoses: The differential diagnosis associated with the presentation includes Admission/Observation Consideration of admission/observation: Escalation of care including admission/observation considered Patient would have been admitted to the hospital had her work up had any findings where hospital admission was appropriate and her clinical presentation warranted hospital admission. Consult Healthcare Provider Management of the patient was discussed with: Janitorial Manager (crisis ED team) Lab Data MDM Lab Attestation statement: I reviewed the patient's lab results. 02/02/25 13:54 02/02/25 13:54 Labs: Lab Results 02/02/25 Range/Units 13:54 WBC 7.6 (4.8-10.8) X10*3/uL RBC 4.60 (4.20-5.50) X10*6/uL Hgb 13.4 (12.0-16.0) g/dl Hct 40.9 (37.0-47.0) % MCV 88.9 (80.0-98.0) fL MCH 29.1 (27.0-33.0) pg MCHC 32.8 (31.0-35.0) g/dl RDW 12.6 (11.0-16.0) % Plt Count 310 (160-400) X10*3/uL MPV 9.5 (9.4-12.3) fL Immature Gran % (Auto) 0.3 (0.0-0.4) % Neut % (Auto) 50.4 (45-73) % Lymph % (Auto) 37.5 (20-40) % Wright % (Auto) 8.8 (2-11) % Eos % (Auto) 2.6 (0-4) % Baso % (Auto) 0.4 (0-2) % Lymph # (Auto) 2.8 (1.2-4.9) X10*3/uL Wright # (Auto) 0.7 (0.1-1.2) X10*3/uL Eos # (Auto) 0.2 (0.0-0.4) X10*3/uL Baso # (Auto) 0.0 (0.0-0.2) X10*3/uL Abs Immat Gran (auto) 0.02 (0.00-0.03) X10*3/uL Absolute Neuts (auto) 3.8 (2.0-8.3) x10*3/uL Absolute Nucleated RBC 0.000 (0.0-0.012) X10*3/uL Nucleated RBC % (auto) 0.0 (0.0-0.2) /100WBC Sodium 139 (135-145) mmol/L Potassium 3.8 (3.3-5.1) mmol/L Chloride 108 (96-108) mmol/L Carbon Dioxide 24 (22-29) mmol/L Anion Gap 11 L (12-20) BUN 16 (9-16) mg/dL Creatinine 0.92 (0.5-1.4) mg/dL Estim Creat Clear Calc 84.1 Estimated GFR > 60 Random Glucose 87 (60-115) mg/dL Calcium 9.7 (8.4-10.2) mg/dL Magnesium 1.9 (1.6-2.6) mg/dL Total Bilirubin 0.3 (0.0-1.0) mg/dL AST 23 (5-31) U/L ALT 19 (0-31) U/L Alkaline Phosphatase 88 (39-117) U/L Total Protein 8.2 H (6.5-8.0) g/dL Albumin 4.9 (3.5-5.0) g/dL Lipase 36 (8-78) U/L Beta HCG, Quant < 2 mIU/mL Urine Color Yellow Urine Appearance Clear Urine pH 8.0 (5.0-9.0) Ur Specific [place] 1.010 (1.005-1.025) Urine Protein Negative (Neg-Trace) mg/dL Urine Glucose (UA) Negative (Negative) mg/dL Urine Ketones Negative (Negative) mg/dL Urine Blood Negative (Negative) Urine Nitrite Negative (Negative) Ur Leukocyte Esterase Trace H (Negative) Urine RBC 0-2 (0-2) /HPF Urine WBC 0-5 (0-5) /HPF Ur Squamous Epith Cells 0-2 (0-2) /HPF Urine Bacteria None Seen (None Seen) Hyaline Casts 0-2 (0-2) /LPF Urine Test NEGATIVE (NEGATIVE) Salicylates < 5.0 L (15-30) mg/dL Urine Opiates Screen Not Detected (Not Detect) Ur Buprenorphine Scrn Not Detected (Not Detect) ng/mL Ur Oxycodone Screen Not Detected (Not Detect) ng/mL Urine Methadone Screen Not Detected (Not Detect) ng/mL Urine Fentanyl Screen Not Detected (Not Detect) Acetaminophen < 3 (<30) mcg/mL Ur Barbiturates Screen Not Detected (Not Detect) Ur Phencyclidine Scrn Not Detected (Not Detect) Ur Amphetamines Screen Not Detected (Not Detect) U Benzodiazepines Scrn Not Detected (Not Detect) Urine Cocaine Screen Not Detected (Not Detect) U Marijuana (THC) Screen Not Detected (Not Detect) Ethyl Alcohol < 10 mg/dL Independent Interpretation I performed an independent interpretation of an: EKG Interpretation: EK bpm, NSR. No overt evidence of STEMI. No evidence of Brugada's sign, delta wave, epsilon wave, significantly prolonged QTc, or malignant arrhythmia Independent Historian Clinical information obtained from an independent historian. History obtained from or confirmed by: Other (boyfriend) Chronic Conditions Patient?s care impacted by: Other Social Determinants Patient?s care significantly limited by Social Determinants of Health including: Problems related to primary support group and Other Social Determinant of Health Discharge Plan Discharge Clinical Impression: Suicidal ideation Depression Qualifiers: Depression Type: unspecified Qualified Code(s): F32.A - Depression, unspecified Patient Disposition: Home, Self-Care Instructions: Suicide Prevention (ED) Additional Instructions: You have been medically cleared from the emergency department. YOu had a crisis evaluation who did not deem you required to be hospitalized, but was able to find you placement at a respite placed tomorrow. Please go there tomorrow as expected. If you have trouble finding a therapist you can reach out to [address] [phone] The National Suicide and Crisis Lifeline can be reached 7 days a week 24 hours a day.? Call 988 to speak with someone.? Return for any worsening symptoms or concerns such as thoughts of self harm or harm to others. Please call 911 if you feel your mental health is worsening.? Prescriptions: No Action No Known Home Meds Referrals: N Crisis [Outside] Clinical Impression: Suicidal ideation Interventions: [place]-Suicide Risk Severity Scale Last Done: 02/02/25 14:07 Print Language: Greek
--- NOTE | 2025-02-02 15:17 | ECG_ITS ---
Test Reason : PSYCH CLEARANCE Blood Pressure : */* mmHG Vent. Rate : 71 BPM Atrial Rate : 71 BPM P-R Int : 124 ms QRS Dur : 82 ms QT Int : 410 ms P-R-T Axes : 62 75 33 degrees QTcB Int : 445 ms Normal sinus rhythm Normal ECG No previous ECGs available Referred By: Nohemi Barrios Electronically Signed By: SHERICE LOMELI MD
[2025-02-02 15:37] LABS: UPreg QC Valid YES
[2025-02-02 16:44] VITALS: BP 95/61; PULSE 69; RESP 12; TEMP 36.2; O2SAT 100
--- OUTSIDE RECORDS SUMMARY | 2025-02-02 18:25 | XMS_ITS | Encounter Summary ---
Author Organization [facility] Address [address] [place] [address] Care Team Providers Care Sole Ruffer Name Role Phone Lissy Reece MD Primary Care P rovider Encounter Details Date Type Department Care Team (Late st Contact Info) Description 2025 LesConciergeshart Message [facility] [address] [place], [place] [phone] Rachel Durbin PA [address] [place], [place] [phone] Rheumatology Social History Tobacco Use Types Packs/Day Years [...] money to get more. 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 Not on file Not on file documented as of this encounter Plan of Treatment Upcoming Encounters Date Type Department Care Team (Late st Contact Info) Description 02/07/2025 2:30 PM EST Telehealth [facility] Primary Care [address] [place] [phone] Krystle Escalante NP [address] [place] [address] 03/07/2025 2:00 PM EST Office Visit [facility] Primary Care [address] [place] [phone] Lissy Reece MD [address] [place] [address] 07/14/2025 3:30 PM EDT Office Visit [facility] [address] [place] [phone] Eduar Alvarez MD [address] [place] [phone] documented as of this encounter Visit Diagnoses Not on filedocumented in this encounter Care Teams Sole Ruffer Relationship Specialty Start Date End Date Lissy Reece MD [address] [place] [address] [place] [address] PCP - General Family Medicine 01/26/25 documented as of this encounter
--- OUTSIDE RECORDS SUMMARY | 2025-02-02 18:25 | XMS_ITS | Encounter Summary ---
Author Organization [facility] Address [address] [place] [address] Care Team Providers Care Night Shift Supervisor Name Role Phone Lissy Reece MD Primary Care P rovider Encounter Details Date Type Department Care Team (Late st Contact Info) Description 01/26/2025 myChart Message [facility] Primary Care [address] [place] [phone] Lissy Reece MD [address] [place], [place] [phone] Screening questionnaires for next visit Social History Tobacco Use Types Packs/Day Years [...] money to get more. 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 Not on file Not on file documented as of this encounter Plan of Treatment Upcoming Encounters Date Type Department Care Team (Late st Contact Info) Description 02/07/2025 2:30 PM EST Telehealth [facility] Primary Care [address] [place] [phone] Krystle Escalante NP [address] [place] [address] 03/07/2025 2:00 PM EST Office Visit [facility] Primary Care [address] [place] [phone] Lissy Reece MD [address] [place] [phone] 07/14/2025 3:30 PM EDT Office Visit [facility] D[facility]ology [address] [place] [phone] Eduar Alvarez MD [address] [place] [phone] documented as of this encounter Visit Diagnoses Not on filedocumented in this encounter Care Teams Night Shift Supervisor Relationship Specialty Start Date End Date Lissy Reece MD [address] [place] [address] EULALIO Chin [address] PCP - General Family Medicine 01/26/25 documented as of this encounter
--- OUTSIDE RECORDS SUMMARY | 2025-02-02 18:25 | XMS_ITS | Encounter Summary ---
Author Organization [facility] Address [address] [place] [address] Care Team Providers Care Computer Systems Designer Name Role Phone Lissy Reece MD Primary Care P rovider Encounter Details Date Type Department Care Team (Late st Contact Info) Description 08/22/2024 Ophth Exam [facility] [address] [place] [phone] Mari Reardon MD [address] [facility] Ophthalmology [place], [place] [phone] Social History Tobacco Use Types Packs/Day Years Used Date Smoking Tobacco: Never Smokeless Tobacco: Never Comments:: Alcohol Use Standard Drinks/Week Comments Never 0 (1 standard drink = 0.6 oz pur e alcohol) Transportation Answer Date Recorded Please mino the areas for ich the patient would like information or assistance: None Apply 08/03/2021 Lack of Transportation (Medical) Not on file 08/03/2021 Housing Stability Answer Date Recorded Please mino the areas for ich the patient would like information or assistance: None Apply 08/03/2021 Unable to Pay for Housing in the Last Year Not o n file 08/03/2021 Last EPDS Total Score Not on file 08/03/2021 Unstable Housing in the Last Year Not on file 08/03/2021 Comments No Sex and Gender Information Value Date Recorded Sex Assigned at Female 10/05/2021 8:09 AM EDT Legal Sex Female 8:03 AM EDT Gender Identity Female 10/05/2021 8:09 AM EDT Sexual Orientation Bisexual 10/05/2021 8: 09 AM EDT documented as of this encounter Plan of Treatment Upcoming Encounters Date Type Department Care Team (Late st Contact Info) Description 02/07/2025 2:30 PM EST Telehealth [facility] [address] [place] [phone] Krystle Escalante NP [address] [place] [address] 03/07/2025 2:00 PM EST Office Visit [facility] [address] [place] [phone] Lissy Reece MD [address] [place] [phone] 07/14/2025 3:30 PM EDT Office Visit [facility] [address] [place] [phone] Eduar Alvarez MD [address] [place] [phone] documented as of this encounter Visit Diagnoses Not on filedocumented in this encounter Care Teams Computer Systems Designer Relationship Specialty Start Date End Date Lissy Reece MD [address] [place] [phone] PCP - General Family Medicine 01/26/25 documented as of this encounter
--- OUTSIDE RECORDS SUMMARY | 2025-02-02 18:25 | XMS_ITS | Encounter Summary ---
Author Organization [facility] Address [address] [place] [address] Care Team Providers Care Casing Man Name Role Phone Lissy Reece MD Primary Care P rovider Encounter Details Date Type Department Care Team (Late st Contact Info) Description 01/26/2025 [place] Message [facility] [address] [place] [phone] [employer], Generic Provider [address] [place] [address] referrals Social History Tobacco Use Types Packs/Day Years [...] money to get more. Often true 09/2024 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 Not on file Not on file documented as of this encounter Plan of Treatment Upcoming Encounters Date Type Department Care Team (Late st Contact Info) Description 02/07/2025 2:30 PM EST Telehealth [facility] [address] [place] [phone] Krystle Escalante NP [address] [place] [address] 03/07/2025 2:00 PM EST Office Visit [facility] [address] [place] [phone] Lissy Reece MD [address] [place] [phone] 07/14/2025 3:30 PM EDT Office Visit [facility] Dermatology [address] [place] [phone] Eduar Alvarez MD [address] [place] [phone] documented as of this encounter Visit Diagnoses Not on filedocumented in this encounter Care Teams Casing Man Relationship Specialty Start Date End Date Lissy Reece MD [address] [place] [address] PCP - General Family Medicine 01/26/25 documented as of this encounter
--- OUTSIDE RECORDS SUMMARY | 2025-02-02 18:25 | XMS_ITS | Patient Health Record ---
Author Organization [facility] Address [address] [place] [address] Care Team Providers Care Custodial Manager Name Role Phone Franko Tom Primary Care Provider Janeen Garcia Unavailable Unavailable PeriKari watson Unavailable [phone] Reason For Referral No Information Medications Medication SIG (Take, Route, Frequency, Duration) [...] (4 tabs qd).; Duration: 30 03/05/2016 Active Ibuprofen 200 mg 0 Oral 2 tabs prn, uses 8/week.; Duration: 30 relief 0%-60%. 12/30/2016 Active Fludrocortisone Acetate 0.1 MG 0 Oral 1 tab bid; Duration: 30 02/19/2016 Active Acetaminophen Extra Strength 500 MG 0 Oral 2 tabs prn; Duration: 30 12/30/2016 Active Plan Of Treatment No Information Insurance Providers Payer Name Payer Address Payer Phone Subscriber Number Group Number Insured Name Patient Relationship to Insured Coverage Start Date Coverage End Date [place] [address] [place] [address] [id number] Edna Galan Self - patient is the insured
--- OUTSIDE RECORDS SUMMARY | 2025-02-02 18:25 | XMS_ITS | Patient Health Record ---
Author Organization [facility] Address [address] [place] [address] Care Team Providers Care Cotton Header Name Role Phone Janeen Garcia MD Primary Care Provider Saira Cuevas MD,MPH, Gavin Unavailable Reason For Referral No Information Medications Medication SIG (Take, Route, Frequency, Duration) Notes Start Date End Date Status Multivitamin 1 TAB ONCE A DAY *Please review and pick correct strength-formulation from Medispan options. If intended option is not shown, discontinue and re-order from Quick Search* Active Social History Tobacco Use: Social History Observation Description Date Details (start date - stop date) Never Smoker NA - NA Smoking: Question Answer Notes Are you a : Never Smoker Alcohol Screen Question Answer Notes Did you have a drink containing alcohol in the p ast year? No Points 0 Interpretation Negative Problems Problem Type SNOMED Code ICD Code Onset Dates Problem Status W/U Status Risk Notes Problem Lymphadenopathy (51288535) Enlarged lymph node in neck (R59.0) Active confirmed Plan Of Treatment No Information Insurance Providers Payer Name Payer Address Payer Phone Subscriber Number Group Number Insured Name Patient Relationship to Insured Coverage Start Date Coverage End Date [facility] [address] [place] [address] [id number] Edna Galan Self - patient is the insured Medical (General) History Surgical History Surgery Date(Month/Year) Lumpectomy appendectomy
--- OUTSIDE RECORDS SUMMARY | 2025-02-02 18:25 | XMS_ITS | Clinical Summary ---
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 Narrative [facility] - 01/27/2025 5:16 AM EST [facility] Received Date: Gayathri Medellin MD LAB BLOOD ORDERABLES Fi nal Result [facility] [address], [place] [address], [employer] [facility] [address], [place] [address], * Allergen Soybean, IgE (01/26/2025 3:40 PM EST) Allergen Soybean (F14) IgE <0.10 kU/L 01/31/2025 5:19 PM EST [employer] [facility] Allergen Soybean (F14) IgE Class 0 01/31/2025 5:19 PM EST [employer] [facility] RAST Interpretation See Comments 01/31/2025 5:19 PM EST [employer] [facility] Comment: Specific Level of Allergen IGE Class [...] analytical performance characteristics have been determined by [employer]. It has not been cleared or approved by the U.S. Food and Drug Administration. This assay has been validated pursuant to the CLIA regulations and is used for clinical purposes. Blood Structure of peripheral vein / Unknown Venipuncture / Unknown 01/26/2025 3:40 PM EST 01/26/2025 3:40 PM EST Narrative [facility] - 01/31/2025 5:19 PM EST [facility] Received Date: us Jessica Treviño MD LAB BLOOD ORDERABLES Final Res ult [facility] [address], [place] [address], [employer] [facility] [address] [facility] [address], [place] [address], * Vitamin D 25 hydroxy (01/26/2025 3:40 PM EST) Calcidiol+ercalc idiol 55 30 - 100 ng/mL 01/27/2025 12:59 PM EST [employer] [facility] Comment: Vitamin D Status 25-OH Vitamin D: Deficiency: <20 ng/mL Insufficiency: 20 - 29 ng/mL Optimal: > or = 30 ng/mL For 25-OH Vitamin D testing on patients on D2-supplementation and patients for whom quantitation of D2 and D3 fractions is required, the QuestAssureD(TM) 25-OH VIT D, (D2,D3), LC/MS/MS is recommended: order code 17514 (patients >2yrs). See Note 1 Note 1 For additional information, please refer to http://education.[employer]/faq/CXY068 (This link is being provided for informational/ educational purposes only.) Blood Structure of peripheral vein / Unknown Venipuncture / Unknown 01/26/2025 3:40 PM EST 01/26/2025 3:40 PM EST [facility] 01/27/[facility] 12:59 PM EST [facility] Received Date:[id number] us Gayathri Medellin MD LAB BLOOD ORDERABLES Fi nal Result Performing Organization Address City/[facility]/ZIP Co de Phone Number [facility] [address], [place] [address], [place] [phone] [employer] [facility] [address], [place] [address], [place] [phone] * HIV 1/2 antibodies, rapid (01/26/2025 3:40 PM EST) Pathologist [facility] HIV Final Interp HIV NEGATIVE 01/27/2025 7:02 AM EST [employer] [facility] Comment: HIV-1 antigen and HIV-1/HIV-2 antibodies were not detected. There is no laboratory evidence of HIV infection. Blood Structure of peripheral vein / Unknown Venipuncture / Unknown 01/26/2025 3:40 PM EST 01/26/2025 3:40 PM EST [employer] [place] - 01/27/2025 7:02 AM EST [facility] Received Date:[id number] us Gayathri Medellin MD LAB BLOOD ORDERABLES Fi nal Result Performing Organization Address City/[facility]/ZIP Co de Phone Number [facility] [address], [place] [address], [place] [phone] [employer] [facility] [address], [place] [address], [place] [phone] * CBC (01/26/2025 3:40 PM EST) Pathologist [facility] WBC 7.9 3.8 - 10.8 10*3/uL 01/26/2025 4:41 PM EST [facility] RBC 4.65 3.80 - 5.10 10*6/uL 01/26/2025 4:41 PM EST [facility] Hemoglobin 13.3 11.7 - 15.5 g/dL 01/26/2025 4:41 PM EST [facility] Hematocrit 40.8 35.0 - 45.0 % 01/26/2025 4:41 PM EST [facility] MCV 87.7 80.0 - 100.0 fL 01/26/2025 4:41 PM EST [facility] MCH 28.6 27.0 - 33.0 pg 01/26/2025 4:41 PM EST [facility] MCHC 32.6 32.0 - 36.0 g/dL 01/26/2025 4:41 PM EST [facility] RDW 12.5 11.0 - 15.0 % 01/26/2025 4:41 PM EST [facility] Platelets 304 140 - 400 10*3/uL 01/26/2025 4:41 PM EST [facility] MPV 9.7 7.5 - 12.5 fL 01/26/2025 4:41 PM EST [facility] Smear Review? 01/26/2025 4:41 PM EST [facility] Blood Structure of peripheral vein / Unknown Venipuncture / Unknown 01/26/2025 3:40 PM EST 01/26/2025 3:40 PM EST us Gayahtri Medellin MD LAB BLOOD ORDERABLES Fi nal Result [facility] [address] [place] [address], * Basic metabolic panel (01/26/2025 3:40 PM EST) NA 139 135 - 145 mmol/L 01/26/2025 9:50 PM EST [facility] K 4.4 3.5 - 5.3 mmol/L 01/26/2025 9:50 PM EST [facility] Cl 106 97 - 110 mmol/L 01/26/2025 9:50 PM EST [employer] [facility] CO2 23 22 - 32 mmol/L 01/26/2025 9:[address] [address] BUN 12 7 - 23 mg/dL 01/26/2025 9:[address] [facility] [employer] [facility] Creatinine 0.81 0.50 - 1.20 mg/dL 01/26/2025 9:[address] [facility] EnergyRIGre[facility] Glucose 85 65 - 99 mg/dL 01/26/2025 9:50 PM EST [employer] [facility] [employer] Calcium 9.6 8.6 - 10.5 mg/dL 01/26/2025 9:50 PM EST [employer] [facility] Anion Gap 10 5 - 15 [facility] 01/26/2025 9:50 PM EST [employer] [facility] eGFR >90 >=60 mL/min/1. 73m[address] [facility] MANUAL 01/26/2025 9:50 PM EST [employer] [facility] Comment:The estimated glomer ular filtration rate (eGFR) is calculated using a new formula developed by the NKF-ASN task force to eliminate race-based correction factors. The new formula uses serum/plasma creatinine, age, and gender to determine eGFR. A value below 60mls/min might indicate kidney disease and will be flagged. For additional information, see Roldan et al, Am J Kidney Dis. 2021;79(2):268- 288, A Unifying Approach for GFR estimation: Recommendations of the NKF-ASN Task Force on Reassessing the Inclusion of Race in Diagnosing Kidney Disease . Blood Structure of peripheral vein / Unknown Venipuncture / Unknown 01/26/2025 3:40 PM EST 01/26/2025 3:40 PM EST us Gayathri Medellin MD LAB BLOOD ORDERABLES Fi nal Result [facility] [address] [place] [address], * [facility] no HPV w/CT/NG (12/26/2022 5:02 PM EDT) [facility] No HPV w/CT NG See Below Spinal Modulation Comment: THINPREP TIS& CT/NG CLINICAL INFORMATION: None given LMP: NONE GIVEN PREV. PAP: NONE GIVEN PREV. BX: NONE GIVEN SOURCE: Cervix BRUSHING UTERINE CERVIX STATEMENT OF ADEQUACY: Satisfactory for evaluation. Endocervical/transformation zone component present. INTERPRETATION/RESULT: Cytology Results: Negative for intraepithelial lesion or malignancy. COMMENT: This Pap test has been evaluated with computer assisted technology. BEAUTY OPERATOR: SAWYER HUIZAR(ASCP) CT screening location: [place] [address] CHLAMYDIA TRACHOMATIS RNA, TMA, UROGENITAL NOT DETECTED REFERENCE RANGE: NOT DETECTED NEISSERIA GONORRHOEAE RNA, TMA, UROGENITAL NOT DETECTED REFERENCE RANGE: NOT DETECTED EXPLANATORY NOTE: The Pap is a screening test for cervical cancer. It is not a diagnostic test and is subject to false negative and false positive results. It is most reliable when a satisfactory sample, regularly obtained, is submitted with relevant clinical findings and history, and when the Pap result is evaluated along with historic and current clinical information. The analytical performance characteristics of this assay, when used to test SurePath(TM) specimens have been determined by [employer]. The modifications have not been cleared or approved by the FDA. This assay has been validated pursuant to the CLIA regulations and is used for clinical purposes. For additional information, please refer to https://education.[employer]/faq/GGA102 (This link is being provided for information/ educational purposes only.) Brushing Cervix uteri structure / Unknown 12/26/2022 5:02 PM EDT Bol[facility]ar Doroteo Weir MD LAB [facility] ORDERABLES Final Result [facility] [address] [facility] [address], [place] [address], [employer] [address] [place] [phone] from Last 3 Months or Most Recently Relevant to Health Maintenance Insurance [facility] MEDICAID Advance Directives Documents on File Type Date Recorded 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
== END 2025-02-02 17:11 | disposition home or self-care (01) ==
PROVIDERS: Physician Assistant Medical; Emergency Provider Emergency Medicine
DX: R45.851 Suicidal ideations (principal); F32.A Depression, unspecified; Z88.8 Allergy status to other drugs, medicaments and biological substances
CPT/HCPCS: 36415; 80053; 80143; 80179; 80307; 81001; 81003; 81025; 83690; 83735; 84702; 85025; 93005; 99284; 99285; S9485

== ENCOUNTER → 2025-02-02 15:17 | Outpatient (BNV) | payer OTHER, SELFPAY | PROVIDERS: Emergency Provider Emergency Medicine; Visit Provider Internal Medicine Cardiovascular Disease | DX: Z13.6 Encounter for screening for cardiovascular disorders (principal) | CPT/HCPCS: 93010 ==